=== PATIENT | male | born 1995 | race American Indian/Alaskan Native ===

== ENCOUNTER 2020-07-27 09:32 | Emergency (ER) | payer SELFPAY ==
[2020-07-27 09:38] VITALS: BP 142/83
--- NOTE | 2020-07-27 10:09 | XRay Report ---
CHEST 2 VIEWS, 07/27/2020 8:59 AM INDICATION: Shortness of breath. Cough. COMPARISON: None FINDINGS: Support devices: None. Heart: The cardiac silhouette is normal in size. Lungs/pleura: The lungs are clear of focal airspace disease or significant pleural effusion. Additional findings: Evaluation of bony structures demonstrates no evidence of acute bony abnormality . IMPRESSION: 1. No evidence of acute cardiopulmonary process. Signer Name: Rhiannon Shay MD Signed: 07/27/2020 10:05 AM Workstation Name: [id number]
[2020-07-27] MEDS ORDERED: ALBUTEROL 2.5 MG/3 ML NEBU IH ONE (10:59)
[2020-07-27] MEDS ORDERED: IPRATROPIUM/ALBUTEROL SULFATE 3 ML AMPUL.NEB IH ONE (11:03)
--- NOTE | 2020-07-27 11:07 | Emergency Department Report ---
ED Asthma HPI - General Chief Complaint: Adult Asthma Stated Complaint: EUGENIA/CHEST PAIN Time Seen by Provider: 07/27/20 10:55 Source: patient Mode of arrival: Ambulatory Limitations: No Limitations - History of Present Illness Initial Comments: 25-year-old male complaining of coughing and wheezing started yesterday. He does have a past medical history of asthma states his last asthma attack was about 3 years ago. He's currently out of his inhaler. He denies fever chills no known sick contacts no nausea no vomiting. He denies history of smoking or any illicit drug use. MD Complaint: wheezing Asthma History: childhood onset Context: none known Associated Symptoms: dry cough, chest pain (with coughing) - Related Data Current Asthma Therapy: none Previous Rx's Medication Instructions Recorded Last Taken Type Albuterol Mdi (or & Nicu Only) 2 puff IH QID PRN #8.5 gram 07/27/20 Unknown Rx [ProAir HFA Inhaler] guaiFENesin [Robitussin] 100 mg PO Q4H PRN #120 ml 07/27/20 Unknown Rx predniSONE [Deltasone] 40 mg PO DAILY 3 Days tablet 07/27/20 Unknown Rx Allergies Allergy/AdvReac Type Severity Reaction Status Date / Time No Known Allergies Allergy Unverified 07/27/20 09:36 ED Review of Systems ROS: Stated complaint: EUGENIA/CHEST PAIN Other details as noted in HPI Comment: All other systems reviewed and negative Constitutional: denies: chills, fever Eyes: denies: eye pain, vision change ENT: denies: throat pain Respiratory: cough, wheezing. denies: shortness of breath Cardiovascular: denies: chest pain, palpitations Endocrine: denies: excessive sweating Gastrointestinal: denies: abdominal pain, nausea, vomiting Genitourinary: denies: discharge Musculoskeletal: denies: back pain Skin: denies: rash, change in color Neurological: denies: headache, numbness Psychiatric: denies: anxiety, auditory hallucinations, visual hallucinations ED Past Medical Hx - Past Medical History Previous Medical History?: Yes Hx Asthma: Yes - Social History Smoking Status: Never Smoker Substance Use Type: None - Medications Home Medications: Home Medications Medication Instructions Recorded Confirmed Last Taken Type Albuterol Mdi (or & Nicu Only) 2 puff IH QID PRN #8.5 gram 07/27/20 Unknown Rx [ProAir HFA Inhaler] guaiFENesin [Robitussin] 100 mg PO Q4H PRN #120 ml 07/27/20 Unknown Rx predniSONE [Deltasone] 40 mg PO DAILY 3 Days tablet 07/27/20 Unknown Rx ED Physical Exam - General Limitations: No Limitations General appearance: alert, in no apparent distress - Head Head exam: Absent: atraumatic, normal inspection - Eye Eye exam: Present: normal appearance - ENT ENT exam: Present: normal exam, mucous membranes dry, TM's normal bilaterally - Neck Neck exam: Present: normal inspection - Respiratory Respiratory exam: Present: wheezes. Absent: respiratory distress, rales, rhonchi, stridor - Cardiovascular Cardiovascular Exam: Present: regular rate, normal heart sounds - GI/Abdominal GI/Abdominal exam: Present: soft - Extremities Exam Extremities exam: Present: normal inspection - Back Exam Back exam: Present: normal inspection - Neurological Exam Neurological exam: Present: alert, oriented X3 - Psychiatric Psychiatric exam: Present: normal affect - Skin Skin exam: Present: warm, dry, intact ED Course Vital Signs 07/27/20 07/27/20 07/27/20 09:37 11:53 12:29 Temperature 98.5 F Pulse Rate 120 H 104 H Pulse Rate [ 107 H Posterior Bilateral Throughout] Respiratory 22 20 Rate Respiratory 20 Rate [Posterior Bilateral Throughout] Blood Pressure 142/83 O2 Sat by Pulse 99 95 Oximetry - Reevaluation(s) Reevaluation #1: 07/27/20 12:24 Patient resting in no distress. His lungs with clear breath sounds no wheezing noted. Chest x-ray no acute findings and results reviewed with patient. ED Medical Decision Making - Radiology Data Radiology results: report reviewed Chest X-ray no acute findings - Medical Decision Making Asthma flareup noted with wheezing on examination. Patient received 1 DuoNeb treatment and his lungs are now completely clear. Chest x-ray shows no acute findings his respirations are even and unlabored and he remains afebrile Critical Care Time: No Critical care attestation.: If time is entered above; I have spent that time in minutes in the direct care of this critically ill patient, excluding procedure time. ED Disposition Clinical Impression: Asthma Qualifiers: Asthma severity: mild Asthma persistence: intermittent Asthma complication t ype: uncomplicated Qualified Code(s): J45.20 - Mild intermittent asthma, uncomplicated Disposition: DC-01 TO HOME OR SELFCARE Is pt being admited?: No Does the pt Need Aspirin: No Condition: Stable Instructions: Asthma (ED) Additional Instructions: Take your medications as prescribed if you develop shortness of breath increased wheezing difficulty breathing fever please return to the emergency room Prescriptions: predniSONE [Deltasone] 40 mg PO DAILY 3 Days tablet Albuterol Mdi (or & Nicu Only) [ProAir HFA Inhaler] 2 puff IH QID PRN #8.5 gram PRN Reason: Shortness Of Breath guaiFENesin [Robitussin] 100 mg PO Q4H PRN #120 ml PRN Reason: Cough Referrals: SAUNDRA GOMEZ MD [Staff Physician] - 3-5 Days PRIMARY CAREMD [Primary Care Provider] - 3-5 Days
== END 2020-07-27 13:13 | disposition home or self-care (01) ==
LOC: ED 09:32
DX: J45.909 Unspecified asthma, uncomplicated (principal); Z79.899 Other long term (current) drug therapy
CPT/HCPCS: 71046; 94640; 94644; 99283